=== PATIENT | male | born 1940 | race Caucasian/White ===

== ENCOUNTER 2021-07-14 10:35 | Outpatient (CLI) | payer OTHER | END 2021-07-14 10:38 | disposition home or self-care (01) | LOC: SONOGRAMA 10:35 | PROVIDERS: ATTEND Pathology Anatomic Pathology & Clinical Pathology | DX: D34 Benign neoplasm of thyroid gland (principal); E07.89 Other specified disorders of thyroid; E04.1 Nontoxic single thyroid nodule ==